=== PATIENT | male | born 1945 | race Caucasian/White ===

== ENCOUNTER 2017-11-11 19:23 | Emergency (ER) | payer MEDICARE, BC ==
[~2017-11-11] VITALS: Ht 185.4 cm; Wt 117.9 kg
[~2017-11-11 19:23] MED LIST: AMLO10 PO; AMLO5; ASPI325; ASPI81CH PO; ASPI81EC PO; ATACAN; ATOR10; Amlodipine Besy10 MG PO; CENTRUM SILVER1 EAC2 PO; CEPH500 PO; CRUTCH USE; DRISTAN INH; ELIQUIS5 MG PO; FENO145 PO; FOLI400; FOLI400 PO; FURO40 PO; Flomax0.4 MG PO; GLIM4; GLIM4 PO; GLIP5ER PO; GLUC500 PO; Glimepiride4 MG PO; HCTZ; HYDACE5 PO; IBUP800 PO; INSUGL100V; INSULANPEN SC; LISI10; LISI20 PO; LISINOPRIL 40MG PO; MAGOXI400 PO; MECL25 PO; METF500; METF500 PO; METO100 PO; METO100ER PO; METO50 PO; METO50ER; METO50ER PO; MULTIVITAMIN PO; MULVITMINF PO; Micro-K10 MEQ PO; NAPR500 PO; OXYACE5T PO; PIOG15; PRED20; PROM25 PO; RXTRAM50 PO; TOCO1000; TRAM50 PO; TRIHYD253B PO; Triamterene W/1 EACH; WATER PILL; metoprolol succinate PO
[2017-11-11 20:35] LABS: BASOPHILS ABSOLUTE AUTO 0.11 K/mm3 (0.00-0.23); BASOPHILS PERCENT AUTO 1 % (0-2); EOSINOPHILS PERCENT AUTO 3 % (0-6); Hematocrit 40.6 % (37.0-53.0); Hemoglobin 13.2 g/dL (13.5-17.5); IMMATURE GRAN ABSOLUTE AUTO 0.04 K/mm3 (0.00-0.10); IMMATURE GRAN PERCENT AUTO 0 % (0-1); LYMPHOCYTES ABSOLUTE AUTO 1.75 K/mm3 (0.84-5.20); LYMPHOCYTES PERCENT AUTO 19 % (21-46); MONOCYTES ABSOLUTE AUTO 0.78 K/mm3 (0.16-1.47); MONOCYTES PERCENT AUTO 9 % (4-13); Mean Corpuscular HGB 28.9 pg (26.0-34.0); Mean Corpuscular HGB Conc 32.5 g/dL (31.5-36.5); Mean Corpuscular Volume 89 fL (80-100); Mean Platelet Volume 10.2 fL (9.1-12.4); NEUTROPHILS PERCENT AUTO 67 % (41-73); Platelet Count 257 K/mm3 (150-400); RDW Coefficient Variation 14.5 % (11.7-14.2); Red Blood Cell Count 4.57 M/mm3 (4.30-5.90); White Blood Cell Count 9.08 K/mm3 (4.00-11.30)
[2017-11-11 20:47] LABS: International Normalized Ratio 0.99; Prothrombin Time Results 10.3 Sec (9.7-11.5)
[2017-11-11 20:51] LABS: Alanine Aminotransfer (ALT/SGP 46 U/L (12-78); Albumin, Blood 3.5 g/dL (3.4-5.0); Albumin/Globulin Ratio 0.7 (0.8-1.8); Alk Phos 92 U/L (50-136); Anion Gap 8 mmol/L (6-16); Aspartate Aminotrans (AST/SGOT 46 U/L (12-37); Bilirubin, Total 0.3 mg/dL (0.1-1.0); Blood Urea Nitrogen 25 mg/dL (8-24); Bun/Creatinine Ratio 23.8 (12.0-20.0); CO2, Blood 24 mmol/L (21-32); Calcium, Blood 9.1 mg/dL (8.5-10.1); Chloride, Blood 101 mmol/L (98-108); Creatinine, Blood 1.05 mg/dL (0.60-1.20); Globulin, Blood 4.7 g/dL (2.2-4.0); Glomerular Filtration Rate >60 (60-); Glucose, Blood 308 mg/dL (70-99); Potassium, Blood 4.5 mmol/L (3.5-5.5); Sodium, Blood 133 mmol/L (136-145); Total Protein, Blood 8.2 g/dL (6.4-8.2)
[2017-11-11] MEDS ORDERED: BASAGLAR K100 UNIT/1 SQ (21:17)
[2017-11-11] MEDS ORDERED: LOVA40 PO (21:19)
[2017-11-11] MEDS ORDERED: BASAGLAR K100 UNIT/1 SC (21:19)
[2017-11-11] MEDS ORDERED: GABA300 PO (21:21)
[2017-11-11 21:43] LABS: Magnesium, Blood 1.7 mg/dL (1.6-2.4); Troponin I <0.015 ng/mL (0.000-0.040)
[2018-01-28] MEDS ORDERED: PANT20 PO (06:02)
[2018-01-28] MEDS ORDERED: BASAGLAR K100 UNIT/1 SQ (06:03)
[2018-01-28] MEDS ORDERED: MECL12.5 PO (16:18)
[2018-04-03] MEDS ORDERED: TAMS.4ER PO (11:13)
[2018-04-03] MEDS ORDERED: CEPH500 PO (11:15)
== END 2017-11-11 22:45 | disposition home or self-care (01) ==
LOC: ER 19:23
PROVIDERS: Emergency Medicine
DX: Z45.018 Encounter for adjustment and management of other part of cardiac pacemaker (principal); R42 Dizziness and giddiness; R11.0 Nausea; E66.9 Obesity, unspecified; I95.9 Hypotension, unspecified; I10 Essential (primary) hypertension; E11.9 Type 2 diabetes mellitus without complications; E78.5 Hyperlipidemia, unspecified; I48.91 Unspecified atrial fibrillation; I44.7 Left bundle-branch block, unspecified; Z87.891 Personal history of nicotine dependence; Z79.4 Long term (current) use of insulin; Z79.82 Long term (current) use of aspirin; Z79.899 Other long term (current) drug therapy; Z68.34 Body mass index [BMI] 34.0-34.9, adult; Z79.84 Long term (current) use of oral hypoglycemic drugs
CPT/HCPCS: 36415; 80053; 83735; 84484; 85025; 85610; 85730; 93005; 93010; 99283

== ENCOUNTER 2017-12-11 04:00 | Day surgery (SDC) | payer MEDICARE, BC ==
[~2017-12-11] VITALS: Ht 185.4 cm; Wt 163.6 kg
[~2017-12-11 04:00] MED LIST changes: +BASAGLAR K100 UNIT/1 SC; +BASAGLAR K100 UNIT/1 SQ; +GABA300 PO; +LOVA40
== END 2017-12-11 10:00 | disposition home or self-care (01) ==
LOC: MHTC 04:00
PROC: 0JH606Z Insertion of Pacemaker, Dual Chamber into Chest Subcutaneous Tissue and Fascia, Open Approach (ICD-10-PCS; principal; 2017-12-11)
PROC: 0JPT0PZ Removal of Cardiac Rhythm Related Device from Trunk Subcutaneous Tissue and Fascia, Open Approach (ICD-10-PCS; principal; 2017-12-11)
DX: Z45.010 Encounter for checking and testing of cardiac pacemaker pulse generator [battery] (principal); I49.5 Sick sinus syndrome; R00.1 Bradycardia, unspecified; E78.5 Hyperlipidemia, unspecified; I10 Essential (primary) hypertension; E11.9 Type 2 diabetes mellitus without complications; I25.10 Atherosclerotic heart disease of native coronary artery without angina pectoris; Z87.891 Personal history of nicotine dependence; I48.2 Chronic atrial fibrillation; Z79.01 Long term (current) use of anticoagulants
CPT/HCPCS: 33228; 82947; 93005; 93010; 99152; 99153; C1785; J0690; J1644; J2250; J3010; J7030; J7040

== ENCOUNTER 2018-01-20 | Day surgery (SDC) | END 2018-01-20 22:41 | disposition home or self-care (01) ==

== ENCOUNTER 2018-03-29 04:35 | Emergency (ER) | payer MEDICARE, BC ==
[~2018-03-29] VITALS: Ht 185.4 cm; Wt 165.6 kg
[~2018-03-29 04:35] MED LIST changes: -LOVA40; +LOVA40 PO; +MECL12.5 PO; +PANT20 PO
[2018-03-29 06:23] LABS: BASOPHILS ABSOLUTE AUTO 0.11 K/mm3 (0.00-0.23); BASOPHILS PERCENT AUTO 1 % (0-2); EOSINOPHILS ABSOLUTE AUTO 0.32 K/mm3 (0.00-0.68); EOSINOPHILS PERCENT AUTO 4 % (0-6); Hematocrit 41.9 % (37.0-53.0); Hemoglobin 13.4 g/dL (13.5-17.5); IMMATURE GRAN ABSOLUTE AUTO 0.05 K/mm3 (0.00-0.10); IMMATURE GRAN PERCENT AUTO 1 % (0-1); LYMPHOCYTES ABSOLUTE AUTO 1.76 K/mm3 (0.84-5.20); LYMPHOCYTES PERCENT AUTO 20 % (21-46); MONOCYTES ABSOLUTE AUTO 0.89 K/mm3 (0.16-1.47); MONOCYTES PERCENT AUTO 10 % (4-13); Mean Corpuscular HGB 28.5 pg (26.0-34.0); Mean Corpuscular Volume 89 fL (80-100); NEUTROPHILS ABSOLUTE AUTO 5.64 K/mm3 (1.96-9.15); NEUTROPHILS PERCENT AUTO 64 % (41-73); Platelet Count 265 K/mm3 (150-400); RDW Coefficient Variation 14.3 % (11.7-14.2); RDW Standard Deviation 46.5 fL (35.1-46.3); Red Blood Cell Count 4.71 M/mm3 (4.30-5.90); White Blood Cell Count 8.77 K/mm3 (4.00-11.30)
[2018-03-29 06:42] LABS: Alanine Aminotransfer (ALT/SGP 47 U/L (12-78); Albumin, Blood 3.5 g/dL (3.4-5.0); Albumin/Globulin Ratio 0.7 (0.8-1.8); Alk Phos 82 U/L (50-136); Anion Gap 9 mmol/L (6-16); Aspartate Aminotrans (AST/SGOT 54 U/L (12-37); Bilirubin, Total 0.3 mg/dL (0.1-1.0); Blood Urea Nitrogen 21 mg/dL (8-24); Bun/Creatinine Ratio 23.5 (12.0-20.0); CO2, Blood 28 mmol/L (21-32); Calcium, Blood 9.2 mg/dL (8.5-10.1); Chloride, Blood 101 mmol/L (98-108); Creatinine, Blood 0.89 mg/dL (0.60-1.20); Globulin, Blood 4.9 g/dL (2.2-4.0); Glomerular Filtration Rate >60 (60-); Glucose, Blood 215 mg/dL (70-99); Potassium, Blood 4.2 mmol/L (3.5-5.5); Sodium, Blood 138 mmol/L (136-145); Total Protein, Blood 8.4 g/dL (6.4-8.2)
[2018-03-29] MEDS ORDERED: Bactrim Ds Tab1 EACH PO (07:00)
== END 2018-03-29 07:50 | disposition home or self-care (01) ==
LOC: ER 04:35
PROVIDERS: Physician Assistant
DX: L03.115 Cellulitis of right lower limb (principal); E11.9 Type 2 diabetes mellitus without complications; Z88.8 Allergy status to other drugs, medicaments and biological substances; Z79.899 Other long term (current) drug therapy; Z79.84 Long term (current) use of oral hypoglycemic drugs; Z79.82 Long term (current) use of aspirin; Z79.4 Long term (current) use of insulin; I10 Essential (primary) hypertension; E78.5 Hyperlipidemia, unspecified
CPT/HCPCS: 36415; 80053; 85025; 93971; 96365; 99284-25

== ENCOUNTER 2018-05-30 18:06 | Emergency (ER) | payer MEDICARE, BC ==
[~2018-05-30] VITALS: Ht 185.4 cm; Wt 165.6 kg
[~2018-05-30 18:06] MED LIST changes: +Bactrim Ds Tab1 EACH PO; +TAMS.4ER PO
[2018-05-30 18:43] LABS: BASOPHILS ABSOLUTE AUTO 0.09 K/mm3 (0.00-0.23); BASOPHILS PERCENT AUTO 1 % (0-2); EOSINOPHILS ABSOLUTE AUTO 0.31 K/mm3 (0.00-0.68); EOSINOPHILS PERCENT AUTO 3 % (0-6); Hematocrit 41.5 % (37.0-53.0); Hemoglobin 13.2 g/dL (13.5-17.5); IMMATURE GRAN ABSOLUTE AUTO 0.01 K/mm3 (0.00-0.10); IMMATURE GRAN PERCENT AUTO 0 % (0-1); LYMPHOCYTES ABSOLUTE AUTO 2.49 K/mm3 (0.84-5.20); LYMPHOCYTES PERCENT AUTO 25 % (21-46); MONOCYTES ABSOLUTE AUTO 0.86 K/mm3 (0.16-1.47); MONOCYTES PERCENT AUTO 9 % (4-13); Mean Corpuscular HGB 28.6 pg (26.0-34.0); Mean Corpuscular HGB Conc 31.8 g/dL (31.5-36.5); Mean Corpuscular Volume 90 fL (80-100); Mean Platelet Volume 9.7 fL (9.1-12.4); NEUTROPHILS ABSOLUTE AUTO 6.08 K/mm3 (1.96-9.15); NEUTROPHILS PERCENT AUTO 62 % (41-73); Platelet Count 291 K/mm3 (150-400); RDW Coefficient Variation 14.4 % (11.7-14.2); RDW Standard Deviation 47.8 fL (35.1-46.3); Red Blood Cell Count 4.61 M/mm3 (4.30-5.90); White Blood Cell Count 9.84 K/mm3 (4.00-11.30)
[2018-05-30 19:06] LABS: Alanine Aminotransfer (ALT/SGP 34 U/L (12-78); Albumin, Blood 3.5 g/dL (3.4-5.0); Albumin/Globulin Ratio 0.7 (0.8-1.8); Alk Phos 78 U/L (50-136); Anion Gap 8 mmol/L (6-16); Aspartate Aminotrans (AST/SGOT 31 U/L (12-37); Bilirubin, Total 0.3 mg/dL (0.1-1.0); Blood Urea Nitrogen 23 mg/dL (8-24); Bun/Creatinine Ratio 20.4 (12.0-20.0); CO2, Blood 25 mmol/L (21-32); Calcium, Blood 9.2 mg/dL (8.5-10.1); Chloride, Blood 103 mmol/L (98-108); Creatinine, Blood 1.13 mg/dL (0.60-1.20); Globulin, Blood 4.8 g/dL (2.2-4.0); Glomerular Filtration Rate >60 (60-); Glucose, Blood 144 mg/dL (70-99); Potassium, Blood 4.5 mmol/L (3.5-5.5); Sodium, Blood 136 mmol/L (136-145); Total Protein, Blood 8.3 g/dL (6.4-8.2)
[2018-05-30] MEDS ORDERED: Cleocin HCl300 MG PO (19:26)
[2018-05-30] MEDS ORDERED: Ultram50 MG PO (19:26)
== END 2018-05-30 19:44 | disposition home or self-care (01) ==
LOC: ER 18:06
PROVIDERS: Internal Medicine
DX: L03.115 Cellulitis of right lower limb (principal); E11.65 Type 2 diabetes mellitus with hyperglycemia; I10 Essential (primary) hypertension; E78.5 Hyperlipidemia, unspecified; I48.91 Unspecified atrial fibrillation; Z88.2 Allergy status to sulfonamides; Z88.1 Allergy status to other antibiotic agents; Z88.8 Allergy status to other drugs, medicaments and biological substances; Z79.899 Other long term (current) drug therapy; Z79.4 Long term (current) use of insulin; Z79.01 Long term (current) use of anticoagulants
CPT/HCPCS: 80053; 85025; 99283

== ENCOUNTER 2018-06-18 00:07 | Day surgery (SDC) | payer MEDICARE, BC ==
[~2018-06-18 00:07] MED LIST changes: +Cleocin HCl300 MG PO; +Ultram50 MG PO
== END 2018-06-18 22:33 | disposition home or self-care (01) ==
LOC: WOUND 00:07
DX: S81.801A Unspecified open wound, right lower leg, initial encounter (principal); L03.115 Cellulitis of right lower limb; E11.51 Type 2 diabetes mellitus with diabetic peripheral angiopathy without gangrene; R60.0 Localized edema; I11.0 Hypertensive heart disease with heart failure; I50.22 Chronic systolic (congestive) heart failure; G47.33 Obstructive sleep apnea (adult) (pediatric); E11.40 Type 2 diabetes mellitus with diabetic neuropathy, unspecified; I48.91 Unspecified atrial fibrillation; E66.01 Morbid (severe) obesity due to excess calories; I25.10 Atherosclerotic heart disease of native coronary artery without angina pectoris

== ENCOUNTER 2018-08-13 00:17 | Day surgery (SDC) | payer MEDICARE, BC | END 2018-08-13 22:43 | disposition home or self-care (01) | LOC: WOUND 00:17 | DX: S81.801D Unspecified open wound, right lower leg, subsequent encounter (principal); L03.90 Cellulitis, unspecified; R60.0 Localized edema; I87.2 Venous insufficiency (chronic) (peripheral); E13.59 Other specified diabetes mellitus with other circulatory complications; I50.22 Chronic systolic (congestive) heart failure | CPT/HCPCS: G0463 ==

== ENCOUNTER 2018-08-27 10:15 | Day surgery (SDC) | payer MEDICARE, BC | END 2018-08-27 22:47 | disposition home or self-care (01) | LOC: WOUND 10:15 | DX: S81.801D Unspecified open wound, right lower leg, subsequent encounter (principal); L03.90 Cellulitis, unspecified; R60.0 Localized edema; I87.2 Venous insufficiency (chronic) (peripheral); E13.59 Other specified diabetes mellitus with other circulatory complications; I50.22 Chronic systolic (congestive) heart failure; E66.01 Morbid (severe) obesity due to excess calories | CPT/HCPCS: G0463 ==

== ENCOUNTER 2018-09-03 10:15 | Day surgery (SDC) | payer MEDICARE, BC | END 2018-09-03 22:44 | disposition home or self-care (01) | LOC: WOUND 10:15 | DX: Z09 Encounter for follow-up examination after completed treatment for conditions other than malignant neoplasm (principal); R60.0 Localized edema; I87.2 Venous insufficiency (chronic) (peripheral); I11.0 Hypertensive heart disease with heart failure; I50.22 Chronic systolic (congestive) heart failure; E11.42 Type 2 diabetes mellitus with diabetic polyneuropathy; E78.5 Hyperlipidemia, unspecified; E66.01 Morbid (severe) obesity due to excess calories; Z79.01 Long term (current) use of anticoagulants | CPT/HCPCS: G0463 ==

== ENCOUNTER 2018-10-06 07:45 | Day surgery (SDC) | payer MEDICARE, BC | END 2018-10-06 22:36 | disposition home or self-care (01) | LOC: WOUND 07:45 | DX: S81.801D Unspecified open wound, right lower leg, subsequent encounter (principal); L03.90 Cellulitis, unspecified; R60.0 Localized edema; I87.2 Venous insufficiency (chronic) (peripheral); E13.59 Other specified diabetes mellitus with other circulatory complications; I50.22 Chronic systolic (congestive) heart failure; Z79.84 Long term (current) use of oral hypoglycemic drugs | CPT/HCPCS: G0463 ==

== ENCOUNTER 2018-11-24 11:03 | Day surgery (SDC) | payer MEDICARE, BC ==
[~2018-11-24] VITALS: Ht 188 cm; Wt 165.9 kg
--- NOTE | 2018-11-24 15:38 | NUR ---
ASSUMED PT CARE AT THIS TIME, REPORT FROM SUSSY VALDIVIA. PT RESTING IN BED, DENIES NEEDS. AT BEDSIDE. VSS, CALL LIGHT IN REACH
--- NOTE | 2018-11-24 16:01 | NUR ---
ACT DRAWN AT THIS TIME, RESULT OF 191. DR REEVES AT BEDSIDE TO SPEAK WITH PT AND SPOUSE.
--- NOTE | 2018-11-24 16:06 | NUR ---
PT ASSISTED TO ROLL ON HIS SIDE IN BED. LEFT GROIN SITE STABLE. DENIES ANY PAIN OR DISCOMFORT. AT BEDSIDE. CALL LIGHT IN REACH.
--- NOTE | 2018-11-24 17:13 | NUR ---
PT VERBALIZED UNDERSTANDING OF D/C INSTRUCTIONS. PT LEFT GROIN ACCESS SITE APPEARS TO BE STABLE. TRANSPARENT TEGADERM REMAINS INTACT. PT DENIES PAIN. PT HERE TO ASSIST WITH GETTING DRESSED AND TO DRIVE PT HOME. PAPERWORK PROVIDED IN [facility]. IV REMOVED FROM LAC WITH CATH INTACT, PRESSURE DRESSING APPLIED. W/C USED TO TRANSPORT PT OUT TO PRIVATE VEHICLE. NADN AT TIME OF DISPO, VSS. PT ENCOURAGED TO CALL PROVIDER WITH ANY QUESTIONS OR CONCERNS AND TO FOLLOW UP SCHEDULED.
== END 2018-11-24 16:00 | disposition home or self-care (01) ==
LOC: MHTC 11:03 → SURS 11:04 → MHTC 11:10
DX: I73.9 Peripheral vascular disease, unspecified (principal); I11.0 Hypertensive heart disease with heart failure; I50.30 Unspecified diastolic (congestive) heart failure; E11.40 Type 2 diabetes mellitus with diabetic neuropathy, unspecified; E78.5 Hyperlipidemia, unspecified; I48.91 Unspecified atrial fibrillation; G47.33 Obstructive sleep apnea (adult) (pediatric); E66.9 Obesity, unspecified; Z99.89 Dependence on other enabling machines and devices; Z88.8 Allergy status to other drugs, medicaments and biological substances; Z79.899 Other long term (current) drug therapy; Z79.84 Long term (current) use of oral hypoglycemic drugs; Z79.02 Long term (current) use of antithrombotics/antiplatelets
CPT/HCPCS: 37228; 37232; 75625; 75716; 75774; 82947; 85347; 99152; 99153; C1725; C1760; C1769; C1887; C1894; J1644; J2250; J3010; J7030; Q9967

== ENCOUNTER 2018-12-12 17:57 | Emergency (ER) | payer MEDICARE, BC ==
[~2018-12-12] VITALS: Ht 188 cm; Wt 165.6 kg
[2018-12-12] MEDS ORDERED: MINO50 PO (19:47)
== END 2018-12-12 20:23 | disposition home or self-care (01) ==
LOC: ER 17:57
DX: L03.115 Cellulitis of right lower limb (principal); Z88.2 Allergy status to sulfonamides; Z88.1 Allergy status to other antibiotic agents; Z88.8 Allergy status to other drugs, medicaments and biological substances; Z79.899 Other long term (current) drug therapy; Z79.4 Long term (current) use of insulin; I10 Essential (primary) hypertension; E11.9 Type 2 diabetes mellitus without complications; E78.5 Hyperlipidemia, unspecified; I48.91 Unspecified atrial fibrillation; Z87.891 Personal history of nicotine dependence
CPT/HCPCS: 99283

== ENCOUNTER 2019-01-20 06:46 | Day surgery (SDC) | payer MEDICARE, BC ==
[~2019-01-20] VITALS: Ht 188 cm; Wt 165.9 kg
[~2019-01-20 06:46] MED LIST changes: +MINO50 PO
== END 2019-01-20 22:45 | disposition home or self-care (01) ==
LOC: MHTC 06:46
DX: I83.91 Asymptomatic varicose veins of right lower extremity (principal); Z88.8 Allergy status to other drugs, medicaments and biological substances; Z88.1 Allergy status to other antibiotic agents; Z79.899 Other long term (current) drug therapy; Z79.01 Long term (current) use of anticoagulants; Z79.4 Long term (current) use of insulin
CPT/HCPCS: 36470; 36475; 99152; 99153; C1888; C1894; J1644; J2250; J3010; J7030; J7040

== ENCOUNTER 2021-11-21 15:03 | Emergency (ER) | payer MEDICARE, BC ==
[~2021-11-21] VITALS: Ht 188 cm; Wt 156.5 kg
[2021-11-21 15:54] LABS: BASOPHILS ABSOLUTE AUTO 0.09 K/mm3 (0.00-0.23); BASOPHILS PERCENT AUTO 1 % (0-2); EOSINOPHILS ABSOLUTE AUTO 0.41 K/mm3 (0.00-0.68); EOSINOPHILS PERCENT AUTO 4 % (0-6); Hematocrit 40.6 % (37.0-53.0); Hemoglobin 13.4 g/dL (13.5-17.5); IMMATURE GRAN ABSOLUTE AUTO 0.04 K/mm3 (0.00-0.10); IMMATURE GRAN PERCENT AUTO 0 % (0-1); LYMPHOCYTES ABSOLUTE AUTO 1.93 K/mm3 (0.84-5.20); LYMPHOCYTES PERCENT AUTO 17 % (21-46); MONOCYTES ABSOLUTE AUTO 1.01 K/mm3 (0.16-1.47); MONOCYTES PERCENT AUTO 9 % (4-13); Mean Corpuscular HGB 28.9 pg (26.0-34.0); Mean Corpuscular Volume 88 fL (80-100); Mean Platelet Volume 10.2 fL (9.1-12.4); NEUTROPHILS ABSOLUTE AUTO 7.79 K/mm3 (1.96-9.15); NEUTROPHILS PERCENT AUTO 69 % (41-73); Platelet Count 293 K/mm3 (150-400); RDW Coefficient Variation 13.9 % (11.7-14.2); RDW Standard Deviation 44.2 fL (35.1-46.3); Red Blood Cell Count 4.64 M/mm3 (4.30-5.90); White Blood Cell Count 11.27 K/mm3 (4.00-11.30)
[2021-11-21 16:09] LABS: Alanine Aminotransfer (ALT/SGP 21 U/L (12-78); Albumin, Blood 3.4 g/dL (3.4-5.0); Albumin/Globulin Ratio 0.7 (0.8-1.8); Alk Phos 64 U/L (50-136); Anion Gap 9 mmol/L (6-16); Aspartate Aminotrans (AST/SGOT 26 U/L (12-37); Bilirubin, Total 0.8 mg/dL (0.1-1.0); Blood Urea Nitrogen 34 mg/dL (8-24); Bun/Creatinine Ratio 30.6 (12.0-20.0); CO2, Blood 27 mmol/L (21-32); Calcium, Blood 9.3 mg/dL (8.5-10.1); Chloride, Blood 99 mmol/L (98-108); Creatinine, Blood 1.11 mg/dL (0.60-1.20); Globulin, Blood 4.8 g/dL (2.2-4.0); Glomerular Filtration Rate >60 (60-); Glucose, Blood 202 mg/dL (70-99); Potassium, Blood 3.7 mmol/L (3.5-5.5); Sodium, Blood 135 mmol/L (136-145); Total Protein, Blood 8.2 g/dL (6.4-8.2)
[2021-11-21 16:21] LABS: Source, Urine Clean Catch
[2021-11-21 16:30] LABS: Bilirubin, Urine Neg (Neg); Blood, Urine 5+ (Neg); Glucose Qualitative, Urine 1+ (Neg); Ketones, Urine 1+ (Neg); Leukocyte Esterase, Urine 1+ (Neg); Nitrite, Urine Pos (Neg); Protein, Urine 4+ (Neg); Specific Gravity, Urine 1.015 (1.003-1.022); Urobilinogen, Urine 1+ (Normal)
[2021-11-21 16:37] LABS: Appearance, Urine Hazy (Clear); Color, Urine Brown (P-Yellow)
[2021-11-21 16:38] LABS: Bacteria Few /hpf; Red Blood Cells, Urine 50-100 /hpf (0-2); Squamous Epithelial Cells Few /hpf (Few)
[2021-11-21] MEDS ORDERED: CEFD300 PO (17:51)
== END 2021-11-21 18:21 | disposition home or self-care (01) ==
LOC: ER 15:03
PROVIDERS: Physician Assistant
DX: N39.0 Urinary tract infection, site not specified (principal); R31.9 Hematuria, unspecified; I10 Essential (primary) hypertension; E11.9 Type 2 diabetes mellitus without complications; E78.5 Hyperlipidemia, unspecified; Z79.899 Other long term (current) drug therapy
CPT/HCPCS: 36415; 80053; 81001; 85025; 87086; 99283; A9270

== ENCOUNTER → 2022-12-09 | Outpatient (CLI) | payer MEDICARE, BC ==
[~2022-12-09] MED LIST changes: +CEFD300 PO
[2022-12-09 19:48] LABS: Microalb/Creat Ratio UR, Rand 573.973 mg/g (0.000-30.000)
== END | disposition home or self-care (01) ==
LOC: LAB 12:44 → LAB SHORT 12:44
PROVIDERS: Nurse Practitioner Family
DX: E11.9 Type 2 diabetes mellitus without complications (principal)
CPT/HCPCS: 82043; 82570

== ENCOUNTER 2024-05-27 06:48 | Emergency (ER) | payer OTHER, MEDICARE, BC ==
[~2024-05-27] VITALS: Ht 188 cm; Wt 117.9 kg
[~2024-05-27 06:48] MED LIST changes: +CEFP200 PO; +Pepcid20 MG PO; +Prednisone20 MG PO; +Vistaril25 MG PO
[2024-05-27 08:24] VITALS: BP 101/81
== END 2024-05-27 08:22 | disposition home or self-care (01) ==
LOC: ER 06:48
DX: S00.03XA Contusion of scalp, initial encounter (principal); E11.40 Type 2 diabetes mellitus with diabetic neuropathy, unspecified; I11.0 Hypertensive heart disease with heart failure; I50.30 Unspecified diastolic (congestive) heart failure; I48.91 Unspecified atrial fibrillation; W01.0XXA Fall on same level from slipping, tripping and stumbling without subsequent striking against object, initial encounter; Z87.891 Personal history of nicotine dependence; Z79.84 Long term (current) use of oral hypoglycemic drugs; Z79.52 Long term (current) use of systemic steroids; Z79.899 Other long term (current) drug therapy; Z88.1 Allergy status to other antibiotic agents; Z88.8 Allergy status to other drugs, medicaments and biological substances
CPT/HCPCS: 70450; 99283-25

== ENCOUNTER → 2024-09-13 | Outpatient (CLI) | payer MEDICARE, BC | LOC: LAB 13:32 → LAB SHORT 13:32 | DX: N39.0 Urinary tract infection, site not specified (principal) | CPT/HCPCS: 87077; 87086; 87186 ==

== ENCOUNTER 2025-06-16 12:08 | Day surgery (SDC) | payer MEDICARE, BC ==
[~2025-06-16] VITALS: Ht 188 cm; Wt 124.7 kg
[~2025-06-16 12:08] MED LIST changes: +Balanced Salt Epinephrine Irrigation Solution 500 mL IR SCH; +Moxifloxacin HCL 0.5 MG/0.1 ML 0.4MLSYR RIGHTEYE SCH; +NS 500 ML IV ONE; +PHENYLEPHRINE\\TROPICAMIDE\\TETRACAINE OPHTHALMIC DILATING SOLN RIGHTEYE PRN; +Povidone-Iodine 450 DROP/30 ML Solution ONE; +Tetracaine HCl/Pf 0.5% Opth Soln 4 ml ONE; +Triamcinolone Inj Susp 40 MG / ML 1ML Vial INJ SCH; +Triamcinolone Inj Susp 40 MG / ML 1ML Vial ONE
[2025-06-16] MEDS ORDERED: FARXIGA10 MG PO (12:44)
[2025-06-16] MEDS ORDERED: HYDR100 PO (12:45)
[2025-06-16] MEDS ORDERED: ISOMON20 PO (12:46)
[2025-06-16] MEDS ORDERED: Midazolam HCl 1MG / ML 2ML Vial ONE (13:18)
[2025-06-16] MEDS ORDERED: FentaNYL Citrate 50 MCG/ML 2 ML Injection ONE (13:18)
[2025-06-16] MEDS ORDERED: Tetracaine HCl 0.5% Opth Soln 15 ml RIGHTEYE ONE (13:25)
[2025-06-16 13:45] VITALS: BP 175/75
--- NOTE | 2025-06-16 13:47 | NUR ---
06/16/[address] IN SPEAKING WITH PT
== END 2025-06-16 14:13 | disposition home or self-care (01) ==
LOC: ORSCSDS 12:08
PROVIDERS: Ophthalmology
PROC: 08RJ3JZ Replacement of Right Lens with Synthetic Substitute, Percutaneous Approach (ICD-10-PCS; principal; 2025-06-16 13:30)
DX: E11.36 Type 2 diabetes mellitus with diabetic cataract (principal); Z95.0 Presence of cardiac pacemaker; H25.811 Combined forms of age-related cataract, right eye; I10 Essential (primary) hypertension; I48.91 Unspecified atrial fibrillation; E78.00 Pure hypercholesterolemia, unspecified; I49.5 Sick sinus syndrome; E66.01 Morbid (severe) obesity due to excess calories; Z68.35 Body mass index [BMI] 35.0-35.9, adult; Z79.01 Long term (current) use of anticoagulants; Z79.4 Long term (current) use of insulin; Z79.84 Long term (current) use of oral hypoglycemic drugs; Z79.899 Other long term (current) drug therapy; G47.33 Obstructive sleep apnea (adult) (pediatric); Z87.891 Personal history of nicotine dependence
CPT/HCPCS: 82947; J2250; J3010; J3301; J7040; V2632

== ENCOUNTER 2025-06-23 11:35 | Day surgery (SDC) | payer MEDICARE, BC ==
[~2025-06-23] VITALS: Ht 188 cm; Wt 125.0 kg
[~2025-06-23 11:35] MED LIST changes: +FARXIGA10 MG PO; +HYDR100 PO; +ISOMON20 PO; +Moxifloxacin HCL 0.5 MG/0.1 ML 0.4MLSYR LEFTEYE SCH; -Moxifloxacin HCL 0.5 MG/0.1 ML 0.4MLSYR RIGHTEYE SCH; +PHENYLEPHRINE\\TROPICAMIDE\\TETRACAINE OPHTHALMIC DILATING SOLN LEFTEYE PRN; -PHENYLEPHRINE\\TROPICAMIDE\\TETRACAINE OPHTHALMIC DILATING SOLN RIGHTEYE PRN
[2025-06-23] MEDS ORDERED: NS 500 ML IV ONE (12:30)
[2025-06-23] MEDS ORDERED: Midazolam HCl 1MG / ML 2ML Vial ONE (12:43)
[2025-06-23] MEDS ORDERED: Tetracaine HCl 0.5% Opth Soln 15 ml LEFTEYE ONE (12:50)
[2025-06-23 13:21] VITALS: BP 158/72
== END 2025-06-23 13:24 | disposition home or self-care (01) ==
LOC: ORSCSDS 11:35
PROVIDERS: Ophthalmology
PROC: 08RK3JZ Replacement of Left Lens with Synthetic Substitute, Percutaneous Approach (ICD-10-PCS; principal; 2025-06-23 13:30)
DX: E11.36 Type 2 diabetes mellitus with diabetic cataract (principal); H25.812 Combined forms of age-related cataract, left eye; Z96.1 Presence of intraocular lens; Z87.891 Personal history of nicotine dependence; Z95.0 Presence of cardiac pacemaker; I48.91 Unspecified atrial fibrillation; I10 Essential (primary) hypertension; E78.00 Pure hypercholesterolemia, unspecified; I49.5 Sick sinus syndrome; Z79.01 Long term (current) use of anticoagulants; Z79.4 Long term (current) use of insulin; Z79.84 Long term (current) use of oral hypoglycemic drugs; Z79.899 Other long term (current) drug therapy
CPT/HCPCS: 82947; J2250; J3301; J7040; V2632